=== PATIENT | female | born 1980 | race Hispanic/Latino ===

== ENCOUNTER → 2024-03-27 14:01 | Outpatient (REF) | payer BC, SELFPAY | LOC: RAD 14:01 | PROVIDERS: ATTENDING PHYSICIAN Physician Assistant Medical | DX: M54.50 Low back pain, unspecified (principal) | CPT/HCPCS: 72110 ==

== ENCOUNTER → 2024-06-14 14:03 | Outpatient (REF) | payer BC, SELFPAY | LOC: PAVMRI 14:03 | PROVIDERS: ATTENDING PHYSICIAN Physician Assistant Medical | DX: M51.36 Other intervertebral disc degeneration, lumbar region (principal); M54.16 Radiculopathy, lumbar region | CPT/HCPCS: 72148 ==